=== PATIENT | female | born 1985 | race African-American/Black ===

== ENCOUNTER 2020-05-18 17:25 | Emergency (ER) | payer OTHER, MEDICAID ==
[~2020-05-18] VITALS: Ht 167.6 cm; Wt 73.0 kg
--- NOTE | 2020-05-18 17:33 | NUR ---
ED Nurse Note: Pt was brought in by ambulance from work. 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 ASA 325mg and nitro was given [employer]; pt verbalized relief and absence of symptoms afterwards. Pt is AOx4, calm and cooperative, VSS,on RA, afebrile on triage; pt denies having cough. will continue to monitor.
[2020-05-18 17:40] VITALS: BP 176/111
--- NOTE | 2020-05-18 17:44 | NUR ---
ED Nurse Note: x-ray at bedside.
--- NOTE | 2020-05-18 17:58 | Emergency Room Report ---
History of Present Illness General Chief Complaint: Chest Pain Source: Patient Present Illness HPI 34-year-old female with a history of preeclampsia 1.5 years ago, hypertension on amlodipine 10mg daily here with palpitations and shortness of breath. 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 She says that this lasted for a few seconds before self resolving. Of note the patient has been taking Keflex for the past 24 hours due to "a boil on my butt." Denies headaches, vision changes, lightheadedness, fevers, chills, chest pain, palpitation, shortness of breath, back pain, abdominal pain, nausea, vomiting, diarrhea, dysuria, leg swelling, leg pain, recent surgeries, long car rides or plane rides, use of hormone supplements. She is an active every day smoker. Allergies: Coded Allergies: No Known Allergies (Unverified , 05/18/20) COVID-19 Screening Contact w/high risk pt: No Experienced COVID-19 symptoms?: No COVID-19 Testing performed [employer]: No Patient History Last Menstrual Period: na Now: No Nursing Documentation-PMH Past Medical History: No History, Except For Hx Cardiac Problems: No Hx Hypertension: Yes Hx Pacemaker: No Hx Asthma: No Hx COPD: No Hx Diabetes: No Hx Cancer: No Hx Gastrointestinal Problems: No Hx Dialysis: No History Of Psychiatric Problem: No Hx Neurological Problems: No Hx Cerebrovascular Accident: No Hx Seizures: No Review of Systems All Other Systems: negative except mentioned in HPI Physical Exam Vital Signs Date Time Temp Pulse Resp B/P (MAP) Pulse Ox O2 Delivery O2 Flow Rate FiO2 05/18/20 17:26 98.6 56 16 176/111 (132) 99 Room Air Sp02 EP Interpretation: reviewed, normal General Appearance: no apparent distress, alert, non-toxic Head: normocephalic, atraumatic Eyes: bilateral eye normal inspection, bilateral eye PERRL ENT: hearing grossly normal, normal pharynx, no angioedema, normal voice Neck: full range of motion, supple/symm/no masses Respiratory: chest non-tender, lungs clear, normal breath sounds, speaking full sentences Cardiovascular #1: regular rate, rhythm, no edema Cardiovascular #2: 2+ carotid (R), 2+ carotid (L), 2+ radial (R), 2+ radial (L) , 2+ dorsalis pedis (R), 2+ dorsalis pedis (L) Gastrointestinal: normal bowel sounds, non tender, soft, non-distended, no guarding, no rebound Rectal: deferred Genitourinary: normal inspection, no CVA tenderness Musculoskeletal: back normal, normal range of motion, calf tenderness, gait/ station normal, non-tender Neurologic: alert, motor strength/tone normal, oriented x3, sensory intact, responsive, speech normal Psychiatric: judgement/insight normal, memory normal, mood/affect normal, no suicidal/homicidal ideation Lymphatic: no adenopathy Medical Decision Making ER Course Ddx: ACS, dissection, PE, PTX, pericarditis, myocarditis, musculoskeletal, GERD/ GI conditions, anxiety EKG: EKG: NSR, no ischemia, intervals WNL. No ectopy. Rate 57 bpm Rhythm strip: patient monitored for arrhythmias - no malignant dysrhythmias, runs of PVCs, nor pauses noted Chest x-ray: No infiltrate/effusion. Mediastinum within normal limits 34-year-old female here with a short episode of nausea, lightheadedness, palpitations. This occurred while the patient was at work about 30 minutes prior to coming to the emergency department. In the ER she had no symptoms whatsoever and says she felt "completely normal." PERC negative. CBC, CMP, troponin all unremarkable. Chest x-ray negative. Patient takes 10 mg of amlodipine daily. On arrival she was hypertensive 180/100. She received an extra dose of 10 mg amlodipine with good resolution of her hypertension. She remained asymptomatic throughout her stay in the emergency department. There is no evidence of any end organ dysfunction. She will follow-up with her primary care physician. She has an appointment with her primary care physician in 3 days. She was told to come back to the emergency department she has any worsening lightheadedness, palpitations, chest pain, nausea, vomiting. She expressed understanding. Discharged in stable condition. Last Vital Signs Date Time Temp Pulse Resp B/P (MAP) Pulse Ox O2 Delivery O2 Flow Rate FiO2 05/18/20 17:40 98.6 16 176/111 99 Room Air 05/18/20 17:40 56 Scripts Ondansetron* (ZOFRAN*) 4 Mg Tablet 4 MG ORAL Q6H PRN for Nausea & Vomiting, #12 TAB Prov: Jacob Vidales M.D. 05/18/20 Jacob Vidales M.D. May 18, 2020 17:58
[2020-05-18 18:18] LABS: ANION GAP 10 mmol/L (5-15); BLOOD UREA NITROGEN 14 mg/dL (7-18); CALCIUM 8.9 MG/DL (8.5-10.1); CARBON DIOXIDE 24 MMOL/L (21-32); CHLORIDE 103 MMOL/L (98-107); CREATININE 0.8 MG/DL (0.55-1.30); POTASSIUM 3.9 MMOL/L (3.5-5.1); SODIUM 137 MMOL/L (136-145)
[2020-05-18 18:23] LABS: ALANINE AMINOTRANSFERASE 20 U/L (12-78); ALBUMIN 3.5 G/DL (3.4-5.0); ALBUMIN/GLOBULIN RATIO 0.9 (1.0-2.7); ALKALINE PHOSPHATASE 76 U/L (46-116); ASPARTATE AMINO TRANSFERASE 17 U/L (15-37); BILIRUBIN,TOTAL 0.2 MG/DL (0.2-1.0)
[2020-05-18 18:26] LABS: HEMATOCRIT 37.9 % (37.0-47.0); HEMOGLOBIN 12.1 G/DL (12.0-16.0); MEAN CORPUSCULAR VOLUME 85 FL (80-99); PLATELET COUNT 265 K/UL (150-450); RED BLOOD COUNT 4.44 M/UL (4.20-5.40); RED CELL DISTRIBUTION WIDTH 15.3 % (11.6-14.8); WHITE BLOOD COUNT 6.6 K/UL (4.8-10.8)
--- NOTE | 2020-05-18 19:08 | NUR ---
ED Nurse Note: Report given to CLEMENCIA Perez.
--- NOTE | 2020-05-18 19:09 | NUR ---
ED Nurse Note: Report received from DAVID MORALES RN
[2020-05-18] MEDS ORDERED: ZOFRAN4 M3 ORAL (19:58)
--- NOTE | 2020-05-18 20:20 | NUR ---
ER DISCHARGE NOTE: Patient is cleared to be discharged per ERMD, pt is aox4, on room air, with stable vital signs. pt was given dc and prescription instructions, pt was able to verbalize understanding, pt id band and iv site removed without complications. pt is able to ambulate with steady gait. pt took all belongings.
[2020-05-18 20:24] VITALS: BP 127/85
--- NOTE | 2020-05-19 16:34 | Diagnostic Imaging Report ---
Indication: Chest pain Technique: One view of the chest Comparison: none Findings: Lungs and pleural spaces are clear. Heart size is normal. Impression: No acute process
== END 2020-05-18 20:25 | disposition home or self-care (01) ==
LOC: EDBD 17:25 → EMR 18:02
DX: R11.0 Nausea (principal); R42 Dizziness and giddiness; R00.2 Palpitations; I10 Essential (primary) hypertension; F17.210 Nicotine dependence, cigarettes, uncomplicated; R07.9 Chest pain, unspecified
CPT/HCPCS: 36415; 71045; 80053; 81025; 84484; 85007; 85025; 99283